=== PATIENT | female | born 1980 | race Caucasian/White ===

== ENCOUNTER 2017-08-24 16:46 | Emergency (ER) | payer MEDICARE ==
--- NOTE | 2017-08-24 17:07 | ER Document Report ---
ED Respiratory Problem - General Stated Complaint: DIFFICULTY BREATHING Time Seen by Provider: 08/24/17 17:00 Mode of Arrival: Ambulatory Information source: Patient Notes: 37-year-old non-smoker visiting from [place] is complaining of feeling ill during the drive here with body aches and nonproductive cough. - Related Data Allergies/Adverse Reactions: Penicillins Adverse Reaction (Verified 08/24/17 18:50) Past Medical History - General Information source: Patient - Social History Smoking Status: Never Smoker Frequency of alcohol use: None Drug Abuse: None Lives with: Family Family History: Reviewed & Not Pertinent - Medical History Medical History: Negative Surgical Hx: Negative Review of Systems - Review of Systems Constitutional: See HPI EENT: See HPI Cardiovascular: No symptoms reported Respiratory: See HPI Gastrointestinal: No symptoms reported Genitourinary: No symptoms reported Female Genitourinary: No symptoms reported Musculoskeletal: No symptoms reported Skin: No symptoms reported Hematologic/Lymphatic: No symptoms reported Neurological/Psychological: No symptoms reported Physical Exam - Vital signs Vitals: Pulse Resp 111 H 18 08/24/17 16:47 08/24/17 16:47 Interpretation: Normal - General General appearance: Appears well, Alert Notes: obese, hoarse voice with mild stridor sound with inspiration - HEENT Head: Normocephalic, Atraumatic Eyes: Normal Conjunctiva: Normal Pupils: PERRL External canal: Normal Tympanic membrane: Normal Mouth/Lips: Normal Pharynx: Normal Neck: Supple. No: Lymphadenopathy - Respiratory Respiratory status: No respiratory distress Chest status: Nontender Breath sounds: Normal Chest palpation: Normal - Cardiovascular Rhythm: Tachycardia - mild Heart sounds: Normal auscultation Murmur: No - Abdominal Inspection: Normal Distension: No distension Bowel sounds: Normal Tenderness: Nontender Organomegaly: No organomegaly - Back Back: Normal, Nontender - Extremities General upper extremity: Normal inspection, Nontender, Normal color, Normal ROM , Normal temperature General lower extremity: Normal inspection, Nontender, Normal color, Normal ROM , Normal temperature, Normal weight bearing. No: Pierre's sign - Neurological Neuro grossly intact: Yes Cognition: Normal Orientation: AAOx4 Cammy Coma Scale Eye Opening: Spontaneous [place] Coma Scale Verbal: Oriented Cammy Coma Scale Motor: Obeys Commands Cammy Coma Scale Total: 15 Speech: Normal Motor strength normal: LUE, RUE, LLE, RLE Sensory: Normal - Psychological Associated symptoms: Normal affect, Normal mood - Skin Skin Temperature: Warm Skin Moisture: Dry Skin Color: Normal Skin irregularity: negative: Rash Course - Re-evaluation Re-evalutation: 08/24/17 18:37 patchy pneumonia right upper lobe per rad. racemic epi tx did not change the mild stridor sound. 08/24/17 19:57 Labs OK. saline tx at this time, no stridor and less laryngitis with the tx. lungs remain clear. vitals stable. I instructed resons to come back to ER for the rul pneumonia and tracheobronchitis'. 08/24/17 19:58 - Vital Signs Vital signs: Temp Pulse Resp BP Pulse Ox 98.7 F 111 H 22 H 163/98 H 98 08/24/17 18:20 08/24/17 18:20 08/24/17 19:01 08/24/17 19:01 08/24/17 19:01 - Laboratory Result Diagrams: 08/24/17 18:20 08/24/17 18:20 Laboratory results interpreted by me: 08/24/17 08/24/17 18:20 18:20 Hgb 11.2 L Hct 33.5 L MCV 70 L MCH 23.3 L RDW 16.5 H Potassium 3.5 L AST 38 H Alkaline Phosphatase 156 H Discharge - Discharge Clinical Impression: high blood pressure reading, Tracheobronchitis Pneumonia Qualifiers: Pneumonia type: due to unspecified organism Laterality: right Lung location: upper lobe of lung Qualified Code(s): J18.1 - Lobar pneumonia, unspecified organism Condition: Good Disposition: HOME, SELF-CARE Instructions: Acetaminophen, Azithromycin ([facility]), Pneumonia ([facility]), Rocephin ([facility] ) Additional Instructions: plenty of fluids to er if worse while visiting 4 more days of azithromycin 250mg rest see your doctor when you get home to [place] about the blood pressure 4 more days of prednisone Prescriptions: Azithromycin [Zithromax] 250 mg PO DAILY #4 tablet Prednisone [Deltasone 20 mg Tablet] 40 mg PO DAILY #8 tablet Forms: Elevated Blood Pressure
[2017-08-24] MEDS ORDERED: PREDNISONE 20 MG TABLET PO ONE (17:10)
[2017-08-24] MEDS ORDERED: RACEPINEPHRINE HCL 2.25% NEB 0.5 ML AMPUL NEB ONE (17:13)
--- NOTE | 2017-08-24 17:38 | RADIOLOGY REPORT (SQ) ---
EXAM DESCRIPTION: CHEST PA/LAT COMPLETED DATE/TIME: 08/24/2017 5:25 pm REASON FOR STUDY: cough COMPARISON: None. EXAM PARAMETERS: NUMBER OF VIEWS: two views TECHNIQUE: Digital Frontal and Lateral radiographic views of the chest acquired. RADIATION DOSE: NA LIMITATIONS: none FINDINGS: LUNGS AND PLEURA: Patchy parenchymal opacities, particularly in the right upper lobe. No pleural effusion. MEDIASTINUM AND HILAR STRUCTURES: No masses or contour abnormalities. HEART AND VASCULAR STRUCTURES: Heart normal size. No evidence for failure. BONES: No acute findings. HARDWARE: None in the chest. OTHER: No other significant finding. IMPRESSION: PATCHY PARENCHYMAL OPACITIES, PARTICULARLY IN THE RIGHT UPPER LOBE. FINDINGS ARE CONCER KEEGAN FOR PNEUMONIA. TECHNICAL DOCUMENTATION: JOB ID: [id number] [employer]- All Rights Reserved
[2017-08-24] MEDS ORDERED: NORMAL SALINE 1000 ML 1,000 ML IV ONE (18:21)
[2017-08-24] MEDS ORDERED: CEFTRIAXONE 1 GM/D5W RTU 1 GM/50 ML RTUPB IV ONE (18:21)
[2017-08-24] MEDS ORDERED: AZITHROMYCIN 250 MG TABLET PO ONE (18:22)
[2017-08-24 18:32] LABS: ABSOLUTE BASOPHILS # (AUTO) 0.1 10^3/uL (0.0-0.2); ABSOLUTE EOSINOPHILS # (AUTO) 0.2 10^3/uL (0.0-0.6); ABSOLUTE LYMPHOCYTES (AUTO) 1.6 10^3/uL (0.5-4.7); ABSOLUTE MONOCYTES (AUTO) 0.5 10^3/uL (0.1-1.4); ABSOLUTE NEUT (AUTO) 5.1 10^3/uL (1.7-8.2); BASOPHILS % (AUTO) 0.8 % (0-2); EOSINOPHILS % (AUTO) 2.2 % (0-6); HEMATOCRIT 33.5 % (36.0-47.0); HEMOGLOBIN 11.2 g/dL (12.0-15.5); HGB HCT DIFFERENCE 0.1; LYMPHOCYTES % (AUTO) 21.3 % (13-45); MEAN CORPUSCULAR HEMOGLOBIN 23.3 pg (27.0-33.4); MEAN CORPUSCULAR HGB CONC 33.3 g/dL (32.0-36.0); MEAN CORPUSCULAR VOLUME 70 fl (80-97); MONOCYTES % (AUTO) 6.5 % (3-13); RED BLOOD COUNT 4.78 10^6/uL (3.72-5.28); RED CELL DISTRIBUTION WIDTH 16.5 % (11.5-14.0); SEGMENTED NEUTROPHILS % (AUTO) 69.2 % (42-78); WHITE BLOOD COUNT 7.4 10^3/uL (4.0-10.5)
[2017-08-24 18:55] LABS: ALANINE AMINOTRANSFERASE 37 U/L (9-52); ALBUMIN 3.9 g/dL (3.5-5.0); ALKALINE PHOSPHATASE 156 U/L (38-126); ANION GAP 15 (5-19); ASPARTATE AMINO TRANSFERASE 38 U/L (14-36); BILIRUBIN,DIRECT 0.3 mg/dL (0.0-0.4); BILIRUBIN,TOTAL 0.3 mg/dL (0.2-1.3); BLOOD UREA NITROGEN 11 mg/dL (7-20); CALCIUM 9.6 mg/dL (8.4-10.2); CARBON DIOXIDE 22 mmol/L (22-30); CHLORIDE 107 mmol/L (98-107); CREATININE RESULT 0.79 mg/dL (0.52-1.25); GLUCOSE 108 mg/dL (75-110); POTASSIUM 3.5 mmol/L (3.6-5.0); SODIUM 143.9 mmol/L (137-145); TOTAL PROTEIN 7.2 g/dL (6.3-8.2)
[2017-08-24] MEDS ORDERED: ALBUTEROL SULFATE HFA (90 MCG/PUFF) 8 GM MDI (1 MDI/ER DISP) IH ONE (21:04)
[2017-08-24 21:42] VITALS: BP 159/90
== END 2017-08-24 21:15 | disposition home or self-care (01) ==
LOC: ER 16:46
DX: J18.1 Lobar pneumonia, unspecified organism (principal); J40 Bronchitis, not specified as acute or chronic; I10 Essential (primary) hypertension; R06.02 Shortness of breath; M79.1 Myalgia; R05 Cough
CPT/HCPCS: 94640 ×2; 99285; 96361; 96365; 36415; 85025; 80053; 71020; A9270 ×2; J7030; J0696; J3490 ×2; J7512